=== PATIENT | male | born 1965 | race Caucasian/White ===

== ENCOUNTER 2017-03-14 10:01 | Observation (INO) | payer BC ==
[2017-03-14] MEDS ORDERED: Hydrocortisone Sodium Succinate 100 MG/2 ML SDV IVPUSH ONE (10:24)
[2017-03-14] MEDS ORDERED: Lactated Ringers 1,000 ML IV ONE (10:45)
[2017-03-14] MEDS ORDERED: Propofol 200 MG/20 ML SDV ONE (10:46)
[2017-03-14] MEDS ORDERED: Midazolam 1 MG/ML 2 ML SDV ONE (10:46)
--- NOTE | 2017-03-14 10:46 | EDM.PDOC ---
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 Review of systems: As per history of present illness and below otherwise all systems reviewed and negative. Past medical history: As per history of present illness and as reviewed below otherwise noncontributory. Surgical history: As per history of present illness and as reviewed below otherwise noncontributory. Social history: No reported history of drug or alcohol abuse. Family history: As per history of present illness and as reviewed below otherwise noncontributory. Physical exam: HEENT: Atraumatic, normocephalic, pupils reactive, negative for conjunctival pallor or scleral icterus, mucous membranes moist, throat clear, neck supple, nontender, trachea midline. Lungs: Clear to auscultation, breath sounds equal bilaterally, chest nontender. Heart: S1S2, regular, tachycardic negative for clicks, rubs, or JVD. Abdomen: Soft, nondistended, nontender. Negative for masses or hepatosplenomegaly. Negative for costovertebral tenderness. Pelvis: Stable nontender. Genitourinary: Deferred. Rectal: Deferred. Extremities: Atraumatic, negative for cords or calf pain. Neurovascular unremarkable. Neuro: Awake, alert, oriented. Diagnostics: CBC CMP PT/INR troponin magnesium chest x-ray EKG Therapeutics: IV O2 monitor hydrocortisone 100 mg IV procedure: Patient was sedated with propofol and Versed and was electrically cardioverted with 50 J synchronized successfully patient has sinus rhythm status post hemodynamically stable tolerated procedure well Impression: #1 tachydysrhythmia (atrial flutter with 2-1 block) Definitive disposition and diagnosis as appropriate pending reevaluation and review of above. - Related Data Allergies Allergy/AdvReac Type Severity Reaction Status Date / Time Sulfa (Sulfonamide Allergy Hives Verified 03/14/17 10:15 Antibiotics) Home Meds: Home Meds Aspirin 81 mg PO BRK 03/14/17 [History] Fludrocortisone [Florinef] 1 tab PO DAILY 03/14/17 [History] Hydrocortisone [Hydrocortisone] 20 mg PO DAILY 03/14/17 [History] ED ROS GENERAL - Review of Systems Review Of Systems: ROS reveals no pertinent complaints other than HPI. ED EXAM, GENERAL - Physical Exam Exam: See Below Course - Vital Signs Last Recorded V/S: Last Vital Signs Temp 36.1 C 03/14/17 10:09 Pulse 145 H 03/14/17 10:09 Resp 12 03/14/17 10:09 BP 132/97 H 03/14/17 10:09 Pulse Ox 98 03/14/17 10:44 - Orders/Labs/Meds Orders: Active Orders 24 hr Category Date Time Status Cardiac Monitoring [RC] . DIRECTED Care 03/14/17 10:16 Active EKG Documentation Completion [RC] STAT Care 03/14/17 10:16 Active Oxygen Therapy [RC] ASDIRECTED Care 03/14/17 10:16 Active Pulse Oximetry [RC] ASDIRECTED Care 03/14/17 10:16 Active Chest 1V Frontal [CR] Stat Exams 03/14/17 10:16 Taken Saline Lock Insert [OM.PC] Stat Oth 03/14/17 10:16 Ordered Labs: Laboratory Tests 03/14/17 03/14/17 03/14/17 Range/Units 10:14 10:14 10:14 WBC 8.57 (4.0-11.0) K/uL RBC 4.00 L (4.50-5.90) M/uL Hgb 13.5 (13.0-17.0) g/dL Hct 40.0 (38.0-50.0) % MCV 100.0 H (80.0-98.0) fL MCH 33.8 H (27.0-32.0) pg MCHC 33.8 (31.0-37.0) g/dL RDW Std Deviation 47.9 (28.0-62.0) fl RDW Coeff of Mario 13 (11.0-15.0) % Plt Count 225 (150-400) K/uL MPV 8.90 (7.40-12.00) fL Neut % (Auto) 70.2 (48.0-80.0) % Lymph % (Auto) 21.2 (16.0-40.0) % [place] % (Auto) 7.6 (0.0-15.0) % Eos % (Auto) 0.9 (0.0-7.0) % Baso % (Auto) 0.1 (0.0-1.5) % Neut # (Auto) 6.0 H (1.4-5.7) K/uL Lymph # (Auto) 1.8 (0.6-2.4) K/uL [place] # (Auto) 0.7 (0.0-0.8) K/uL Eos # (Auto) 0.1 (0.0-0.7) K/uL Baso # (Auto) 0.0 (0.0-0.1) K/uL Nucleated RBC % 0.0 /100WBC Nucleated RBCs # 0 K/uL INR 0.92 (0.86-1.11) Sodium 142 (136-146) mmol/L Potassium 4.2 (3.5-5.1) mmol/L Chloride 112 H (98-110) mmol/L Carbon Dioxide 20 L (21-31) mmol/L BUN 17 (6.0-23.0) mg/dL Creatinine 0.9 (0.6-1.5) mg/dL Est Cr Clr Drug Dosing 100.26 mL/min Estimated GFR (MDRD) > 60.0 ml/min Glucose 99 (60-110) mg/dL Calcium 8.9 (8.8-10.8) mg/dL Total Bilirubin 0.4 (0.1-1.5) mg/dL AST 75 H (5-40) IU/L ALT 55 H (8-54) IU/L Alkaline Phosphatase 73 (40-150) Troponin I < 0.10 (0.0-0.29) NG/ML Total Protein 6.5 (6.0-8.0) g/dL Albumin 3.7 (3.5-5.0) g/dL Globulin 2.8 (2.0-3.5) g/dL Albumin/Globulin Ratio 1.3 (1.3-2.8) Meds: Medications Discontinued Medications Generic Name Dose Route Start Last Admin Trade Name Freq PRN Reason Stop Dose Admin Hydrocortisone Sodium Succinate 100 mg 03/14/17 10:24 03/14/17 10:35 Solu-Cortef IVPUSH 03/14/17 10:25 100 mg ONETIME ONE Administration Midazolam HCl Confirm 03/14/17 10:46 Versed 1 Mg/Ml Administered 03/14/17 10:47 Dose 2 mg .ROUTE .STK-MED ONE Propofol Confirm 03/14/17 10:46 Diprivan 20 Ml Administered 03/14/17 10:47 Dose 200 mg .ROUTE .STK-MED ONE Departure - Departure Time of Disposition: 11:11 Disposition: Refer to Observation Condition: Good Clinical Impression: Atrial flutter, History of Ipgov-Ftplpcxej-Vlksq (WPW) syndrome Referrals: PCP,None [Primary Care Provider] - Forms: ED Department Discharge - My Orders Last 24 Hours: My Active Orders 03/14/17 10:16 Cardiac Monitoring [RC] . DIRECTED EKG Documentation Completion [RC] STAT Oxygen Therapy [RC] ASDIRECTED Pulse Oximetry [RC] ASDIRECTED Chest 1V Frontal [CR] Stat Saline Lock Insert [OM.PC] Stat - Assessment/Plan Last 24 Hours: My Active Orders 03/14/17 10:16 Cardiac Monitoring [RC] . DIRECTED EKG Documentation Completion [RC] STAT Oxygen Therapy [RC] ASDIRECTED Pulse Oximetry [RC] ASDIRECTED Chest 1V Frontal [CR] Stat Saline Lock Insert [OM.PC] Stat
[2017-03-14 10:47] LABS: CHLORIDE,CL 112 mmol/L (98-110); SODIUM,NA 142 mmol/L (136-146)
[2017-03-14] MEDS: Propofol 200 MG/20 ML SDV IVPUSH ONE ×2 (10:55→13:59)
[2017-03-14] MEDS: Midazolam 1 MG/ML 2 ML SDV IVPUSH ONE ×2 (10:55→14:00)
--- NOTE | 2017-03-14 11:09 | PCM.PREANE ---
Preanesthetic Assessment - Anesthesia/Transfusion/Family Hx Anesthesia History: No Prior Anesthesia - Review of Systems General: No Symptoms Pulmonary: No Symptoms Cardiovascular: No Symptoms Gastrointestinal: No Symptoms Neurological: No Symptoms Other: Reports: None - Physical Assessment NPO Status Date: 03/14/17 NPO Status Time: 09:00 O2 Sat by Pulse Oximetry: 96 Respiratory Rate: 12 Vital Signs: Last Vital Signs Temp 97.0 F 03/14/17 10:09 Pulse 145 H 03/14/17 10:09 Resp 12 03/14/17 10:09 BP 132/97 H 03/14/17 10:09 Pulse Ox 98 03/14/17 10:44 Height: 5 ft 10 in Weight: 86.183 kg ASA Class: 3E Mental Status: Alert & Oriented x3 Airway Class: Mallampati = 1 Dentition: Reports: Normal Dentition Thyro-Mental Finger Breadths: 3 Mouth Opening Finger Breadths: 3 ROM/Head Extension: Full Lungs: Clear to Auscultation, Normal Respiratory Effort Cardiovascular: Regular Rate, Regular Rhythm - Lab Values: Laboratory Last Values WBC 8.57 K/uL (4.0-11.0) 03/14/17 10:14 RBC 4.00 M/uL (4.50-5.90) L 03/14/17 10:14 Hgb 13.5 g/dL (13.0-17.0) 03/14/17 10:14 Hct 40.0 % (38.0-50.0) 03/14/17 10:14 MCV 100.0 fL (80.0-98.0) H 03/14/17 10:14 MCH 33.8 pg (27.0-32.0) H 03/14/17 10:14 MCHC 33.8 g/dL (31.0-37.0) 03/14/17 10:14 RDW Std Deviation 47.9 fl (28.0-62.0) 03/14/17 10:14 RDW Coeff of Mario 13 % (11.0-15.0) 03/14/17 10:14 Plt Count 225 K/uL (150-400) 03/14/17 10:14 MPV 8.90 fL (7.40-12.00) 03/14/17 10:14 Neut % (Auto) 70.2 % (48.0-80.0) 03/14/17 10:14 Lymph % (Auto) 21.2 % (16.0-40.0) 03/14/17 10:14 [place] % (Auto) 7.6 % (0.0-15.0) 03/14/17 10:14 Eos % (Auto) 0.9 % (0.0-7.0) 03/14/17 10:14 Baso % (Auto) 0.1 % (0.0-1.5) 03/14/17 10:14 Neut # (Auto) 6.0 K/uL (1.4-5.7) H 03/14/17 10:14 Lymph # (Auto) 1.8 K/uL (0.6-2.4) 03/14/17 10:14 [place] # (Auto) 0.7 K/uL (0.0-0.8) 03/14/17 10:14 Eos # (Auto) 0.1 K/uL (0.0-0.7) 03/14/17 10:14 Baso # (Auto) 0.0 K/uL (0.0-0.1) 03/14/17 10:14 Nucleated RBC % 0.0 /100WBC 03/14/17 10:14 Nucleated RBCs # 0 K/uL 03/14/17 10:14 INR 0.92 (0.86-1.11) 03/14/17 10:14 Sodium 142 mmol/L (136-146) 03/14/17 10:14 Potassium 4.2 mmol/L (3.5-5.1) 03/14/17 10:14 Chloride 112 mmol/L (98-110) H 03/14/17 10:14 Carbon Dioxide 20 mmol/L (21-31) L 03/14/17 10:14 BUN 17 mg/dL (6.0-23.0) 03/14/17 10:14 Creatinine 0.9 mg/dL (0.6-1.5) 03/14/17 10:14 Est Cr Clr Drug Dosing 100.26 mL/min 03/14/17 10:14 Estimated GFR (MDRD) > 60.0 ml/min 03/14/17 10:14 Glucose 99 mg/dL (60-110) 03/14/17 10:14 Calcium 8.9 mg/dL (8.8-10.8) 03/14/17 10:14 Total Bilirubin 0.4 mg/dL (0.1-1.5) 03/14/17 10:14 AST 75 IU/L (5-40) H 03/14/17 10:14 ALT 55 IU/L (8-54) H 03/14/17 10:14 Alkaline Phosphatase 73 (40-150) 03/14/17 10:14 Troponin I < 0.10 NG/ML (0.0-0.29) 03/14/17 10:14 Total Protein 6.5 g/dL (6.0-8.0) 03/14/17 10:14 Albumin 3.7 g/dL (3.5-5.0) 03/14/17 10:14 Globulin 2.8 g/dL (2.0-3.5) 03/14/17 10:14 Albumin/Globulin Ratio 1.3 (1.3-2.8) 03/14/17 10:14 - Allergies Allergies/Adverse Reactions: Allergies Allergy/AdvReac Type Severity Reaction Status Date / Time Sulfa (Sulfonamide Allergy Hives Verified 03/14/17 10:15 Antibiotics) - Acknowledgements Anesthesia Type Planned: MAC Pt an Appropriate Candidate for the Planned Anesthesia: Yes Alternatives and Risks of Anesthesia Discussed w Pt/Guardian: Yes Pt/Guardian Understands and Agrees with Anesthesia Plan: Yes PreAnesthesia Questionnaire HEENT History: Reports: None Cardiovascular History: Reports: Other (See Below) Other Cardiovascular History: Warren Parkinsons Respiratory History: Reports: None Gastrointestinal History: Reports: None Genitourinary History: Reports: None Musculoskeletal History: Reports: None Neurological History: Reports: None Psychiatric History: Reports: None 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) Hematologic History: Reports: None Immunologic History: Reports: None Oncologic (Cancer) History: Reports: None Dermatologic History: Reports: None - Infectious Disease History Infectious Disease History: Reports: None - SUBSTANCE USE Smoking Status *Q: Never Smoker Second Hand Smoke Exposure: Yes Recreational Drug Use History: No - HOME MEDS Home Medications: Home Meds Aspirin 81 mg PO BRK 03/14/17 [History] Fludrocortisone [Florinef] 1 tab PO DAILY 03/14/17 [History] Hydrocortisone [Hydrocortisone] 20 mg PO DAILY 03/14/17 [History] - CURRENT (IN HOUSE) MEDS Current Meds: Current Medications Discontinued Medications Hydrocortisone Sodium Succinate (Solu-Cortef) 100 mg IVPUSH ONETIME ONE Stop: 03/14/17 10:25 Last Admin: 03/14/17 10:35 Dose: 100 mg Midazolam HCl (Versed 1 Mg/Ml) Confirm Administered Dose 2 mg .ROUTE .STK-MED ONE Stop: 03/14/17 10:47 Propofol (Diprivan 20 Ml) Confirm Administered Dose 200 mg .ROUTE .STK-MED ONE Stop: 03/14/17 10:47
--- NOTE | 2017-03-14 11:12 | PCM.POSTAN ---
POST ANESTHESIA ASSESSMENT - MENTAL STATUS Mental Status: Alert, Oriented - VITAL SIGNS Pulse Rate: 80 SaO2: 99 (6 LPM) Resp Rate: 14 Blood Pressure: 104/73 - RESPIRATORY Respiratory Status: Respiratory Rate WNL, Airway Patent, O2 Saturation Stable - CARDIOVASCULAR CV Status: Pulse Rate WNL, Blood Pressure Stable - GASTROINTESTINAL GI Status: No Symptoms - PAIN Pain Score: 0 - POST OP HYDRATION Hydration Status: Adequate & Stable
[2017-03-14] MEDS ORDERED: Sodium Chloride 0.9% 2.5 ML Syringe FLUSH PRN (12:28)
[2017-03-14] MEDS ORDERED: Albuterol/Ipratropium 3.0-0.5 MG/3 ML Neb Soln NEB PRN (12:28)
[2017-03-14] MEDS ORDERED: Ondansetron 4 MG/2 ML SDV IVPUSH PRN (12:28)
[2017-03-14] MEDS ORDERED: Sodium Chloride 0.9% 10 ML Syringe FLUSH PRN (12:28)
[2017-03-14] MEDS ORDERED: Acetaminophen 325 MG Tab PO PRN (12:28)
[2017-03-14] MEDS ORDERED: Sodium Chloride 0.9% 1,000 ML IV SCH (14:00)
--- NOTE | 2017-03-14 18:11 | PCM.HP ---
H&P History of Present Illness - General Date of Service: 03/14/17 Admit Problem/Dx: Admission Diagnosis/Problem Admission Diagnosis/Problem Atrial flutter Source of Information: Patient History Limitations: Reports: No Limitations - History of Present Illness Initial Comments - Free Text/Narative: Patient 51 y old man with PMhx of adrenal insufficiency and WPW syndrome presented to ER due to sudden onset of palpitations that persisted for few hours , not releaved by Valsalva maneuver. Patient has history of brief episodes of palpitations that lasts for few seconds every few months or years. He recently used a hair growth solution with Minoxidil and is drinking about 2 cups of coffee a day. No lightheadedness , no hypotension. The palpitations started around 3 am while he was sitting at the computer. Onset of Symptoms: Reports: Today, Sudden Duration of Symptoms: Reports: Hour(s): - Related Data Allergies/Adverse Reactions: Allergies Allergy/AdvReac Type Severity Reaction Status Date / Time Sulfa (Sulfonamide Allergy Hives Verified 03/14/17 10:15 Antibiotics) Home Medications: Home Meds RX: Aspirin 81 mg PO BRK 03/14/17 [History] RX: Fludrocortisone [Florinef] 1 tab PO DAILY 03/14/17 [History] RX: Hydrocortisone 20 mg PO DAILY 03/14/17 [History] Past Medical History HEENT History: Reports: None Cardiovascular History: Reports: Other (See Below) Other Cardiovascular History: Warren Parkinsons Respiratory History: Reports: None Gastrointestinal History: Reports: None Genitourinary History: Reports: None Musculoskeletal History: Reports: None Neurological History: Reports: None Psychiatric History: Reports: None 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 Hematologic History: Reports: None Immunologic History: Reports: None Oncologic (Cancer) History: Reports: None Dermatologic History: Reports: None - Infectious Disease History Infectious Disease History: Reports: None Social & Family History - Family History Family Medical History: Noncontributory - Tobacco Use Smoking Status *Q: Never Smoker Second Hand Smoke Exposure: Yes - Caffeine Use Caffeine Use: Reports: Coffee - Alcohol Use Days Per Week of Alcohol Use: 2 Number of Drinks Per Day: 3 Total Drinks Per Week: 6 - Recreational Drug Use Recreational Drug Use: No H&P Review of Systems - Review of Systems: Review Of Systems: See Below General: Reports: Malaise HEENT: Reports: No Symptoms Pulmonary: Reports: No Symptoms Cardiovascular: Reports: Palpitations Gastrointestinal: Reports: Diarrhea Genitourinary: Reports: No Symptoms Musculoskeletal: Reports: No Symptoms Skin: Reports: No Symptoms Psychiatric: Reports: No Symptoms Neurological: Reports: No Symptoms Hematologic/Lymphatic: Reports: No Symptoms Immunologic: Reports: No Symptoms Exam - Exam Exam: See Below - Vital Signs Vital Signs: Last Vital Signs Temp 98.6 F 03/14/17 16:00 Pulse 75 03/14/17 16:00 Resp 14 03/14/17 16:00 BP 111/83 03/14/17 16:00 Pulse Ox 97 03/14/17 16:00 Weight: 197 lb 8.547 oz - Exam General: Alert, Oriented, Cooperative HEENT: Conjunctiva Clear, EACs Clear, Hearing Intact, Mucosa Moist & [place], Nares Patent, Normal Nasal Septum Neck: Supple, Trachea Midline Lungs: Clear to Auscultation, Normal Respiratory Effort Cardiovascular: Regular Rate, Regular Rhythm, Normal S1, Normal S2 GI/Abdominal Exam: Normal Bowel Sounds, Soft, Non-Tender, No Distention, No Mass Back Exam: Normal Inspection - Patient Data Lab Results Last 24 hrs: Laboratory Results - last 24 hr 03/14/17 Range/Units 14:00 Troponin I < 0.10 (0.0-0.29) NG/ML Result Diagrams: 03/14/17 10:14 03/14/17 10:14 EKG INTERPRETATION EKG Date: 03/14/17 Rhythm: A-Flutter Rate (Beats/Min): 143 *Q Meaningful Use (ADM) - VTE *Q VTE Criteria *Q: - Stroke *Q Stroke Criteria *Q: - AMI *Q AMI Criteria *Q: - Problem List (1) Atrial flutter SNOMED Code(s): 0780329 ICD Code: I48.92 - UNSPECIFIED ATRIAL FLUTTER Status: Acute (2) History of Teeor-Ypqhytsfu-Wurqx (WPW) syndrome SNOMED Code(s): 198608360 ICD Code: Z86.79 - PERSONAL HISTORY OF OTHER DISEASES OF THE CIRCULATORY SYSTEM Status: Acute (3) Elevated LFTs SNOMED Code(s): 067614774 ICD Code: R79.89 - OTHER SPECIFIED ABNORMAL FINDINGS OF BLOOD CHEMISTRY Status: Acute Problem List Initiated/Reviewed/Updated: Yes Orders Last 24hrs: Active Orders 24 hr Category Date Time Status Patient Status [ADT] Routine ADT 03/14/17 12:29 Active Antiembolic Devices [RC] Q12H Care 03/14/17 12:37 Active Bedrest Bathroom Privileges [RC] ASDIRECTED Care 03/14/17 12:28 Active Cardiac Monitoring [RC] CONTINUOUS Care 03/14/17 12:35 Inactive Oxygen Therapy [RC] PRN Care 03/14/17 12:29 Active RT Aerosol Therapy [RC] ASDIRECTED Care 03/14/17 12:38 Active Vital Signs [RC] Q4H Care 03/14/17 12:29 Active Regular Diet [DIET] Diet 03/14/17 Lunch Active BASIC METABOLIC PANEL,BMP [CHEM] AM Lab 03/15/17 05:11 Ordered BASIC METABOLIC PANEL,BMP [CHEM] AM Lab 03/16/17 05:11 Ordered BASIC METABOLIC PANEL,BMP [CHEM] AM Lab 03/17/17 05:11 Ordered BASIC METABOLIC PANEL,BMP [CHEM] AM Lab 03/18/17 05:11 Ordered CBC WITH AUTO DIFF [HEME] AM Lab 03/15/17 05:11 Ordered CBC WITH AUTO DIFF [HEME] AM Lab 03/16/17 05:11 Ordered CBC WITH AUTO DIFF [HEME] AM Lab 03/17/17 05:11 Ordered CBC WITH AUTO DIFF [HEME] AM Lab 03/18/17 05:11 Ordered CULTURE STOOL + CAMPY+SHIGATOX [RM] Routine Lab 03/14/17 15:26 Uncollected WBC, STOOL [OP] Routine Lab 03/14/17 15:26 Uncollected Acetaminophen [Tylenol] Med 03/14/17 12:28 Active 650 mg PO Q4H PRN Albuterol/Ipratropium [DuoNeb 3.0-0.5 MG/3 ML] Med 03/14/17 12:28 Active 3 ml NEB Q4HRRT PRN Aspirin Med 03/15/17 08:00 Active 81 mg PO BRK Fludrocortisone [Florinef] Med 03/15/17 09:00 Active 0.1 mg PO DAILY Hydrocortisone [Cortef] Med 03/15/17 09:00 Active 20 mg PO DAILY Ondansetron [Zofran] Med 03/14/17 12:28 Active 4 mg IVPUSH Q4H PRN Sodium Chloride 0.9% [Normal Saline] 1,000 ml Med 03/14/17 14:00 Active IV ASDIRECTED Sodium Chloride 0.9% [Saline Flush] Med 03/14/17 12:28 Active 10 ml FLUSH ASDIRECTED PRN Sodium Chloride 0.9% [Saline Flush] Med 03/14/17 12:28 Active 2.5 ml FLUSH ASDIRECTED PRN Peripheral IV Insertion Adult [OM.PC] Routine Oth 03/14/17 12:28 Ordered Sequential Compression Device [OM.PC] Per Unit Routine Oth 03/14/17 12:35 Ordered Resuscitation Status Routine Resus Stat 03/14/17 12:28 Ordered Medication Orders Acetaminophen (Tylenol) 650 mg PO Q4H PRN PRN Reason: Pain (Mild 1-3)/fever Albuterol/Ipratropium (Duoneb 3.0-0.5 Mg/3 Ml) 3 ml NEB Q4HRRT PRN PRN Reason: Shortness Of Breath/wheezing Aspirin (Aspirin) 81 mg PO BRK CHEPE Fludrocortisone Acetate (Florinef) 0.1 mg PO DAILY CHEPE Hydrocortisone (Cortef) 20 mg PO DAILY CHEPE Sodium Chloride (Normal Saline) 1,000 mls @ 100 mls/hr IV ASDIRECTED CHEPE Last Admin: 03/14/17 14:30 Dose: 100 mls/hr Ondansetron HCl (Zofran) 4 mg IVPUSH Q4H PRN PRN Reason: Nausea Sodium Chloride (Saline Flush) 10 ml FLUSH ASDIRECTED PRN PRN Reason: Keep Vein Open Sodium Chloride (Saline Flush) 2.5 ml FLUSH ASDIRECTED PRN PRN Reason: Keep Vein Open A/p A flutter new onset s/p cardioversion to sinus rhythm in Er WPW syndrome Adrenal Insufficiency equivocal chest pain mild elev of LFT plan: will admit patient to observation Iv fluids, property assessment monitor , lipid profile , serial troponins. Cardiology consult will continue home medications for adrenal insufficiency : hydrocortisone 10 mg po BID , fludrocortisone 0.1 mg po daily DVT prof: patient is ambulatory
--- NOTE | 2017-03-14 23:27 | PCM48HPAN ---
Post Anesthesia Note - EVALUATION WITHIN 48HRS OF ANESTHETIC Vital Signs in Normal Range: Yes Patient Participated in Evaluation: Yes Respiratory Function Stable: Yes Airway Patent: Yes Cardiovascular Function Stable: Yes Hydration Status Stable: Yes Pain Control Satisfactory: Yes Nausea and Vomiting Control Satisfactory: Yes Mental Status Recovered: Yes
[2017-03-15] MEDS ORDERED: Aspirin 81 MG Tab.Chew PO SCH (08:00)
[2017-03-15] MEDS ORDERED: Fludrocortisone 0.1 MG Tab PO SCH (09:00)
[2017-03-15] MEDS ORDERED: Hydrocortisone 20 MG Tab PO SCH (09:00)
--- NOTE | 2017-03-15 12:04 | CR ---
EXAM DATE: 03/14/17 PATIENT'S AGE: 51 Patient: TAISHA ESCALANTE Facility: [place], [place] Site . Site : 1965 Study: XRay Chest [id number]/23/2017 10:28:50 AM Ordering Physician: Rashid Aj Final Report: INDICATION: Elevated heart rate. Technique: Portable chest. Findings: Heart and mediastinum are normal in size. Pulmonary vessels are normal. Lungs are clear. No pleural fluid. No acute bony abnormality. Impression: No acute chest disease. Dictated by Tootie Dockery MD @ Mar 14 2017 10:40AM (Electronic Signature) Report Signed by Proxy. [facility]
== END 2017-03-14 19:30 | disposition home or self-care (01) ==
LOC: MW.ED 10:01 → MW.ICU 11:10 → UNDOADMOB 11:10 → MW.ICU 11:14
PROVIDERS: ADMIT Internal Medicine; ATTEND Internal Medicine
DX: I48.92 Unspecified atrial flutter (principal); R79.89 Other specified abnormal findings of blood chemistry; Z86.79 Personal history of other diseases of the circulatory system; Z88.2 Allergy status to sulfonamides; Z79.82 Long term (current) use of aspirin; Z79.899 Other long term (current) drug therapy
CPT/HCPCS: 36415; 71010; 80053; 80061; 83735; 84484; 85025; 85610; 92960; 93005; 96365; 96375; 99285; G0378; J1720; J2250; J7040; J7120; 00410; 99283; J2704

== ENCOUNTER 2018-09-16 07:21 | Day surgery (SDC) | payer BC ==
[~2018-09-16 07:21] MED LIST: Lactated Ringers 1,000 ML IV SCH; Lidocaine 2% 5 ML SDV ONE; Propofol 200 MG/20 ML SDV ONE; Sodium Chloride 0.9% 10 ML SDV IV PRN; Sodium Chloride 0.9% 10 ML Syringe FLUSH PRN; Sodium Chloride 0.9% 2.5 ML Syringe FLUSH PRN; fentaNYL 100 MCG/2 ML SDV ONE
--- NOTE | 2018-09-16 08:10 | PCM.PREANE ---
Preanesthetic Assessment - Anesthesia/Transfusion/Family Hx Anesthesia History: Prior Anesthesia Without Reaction (hernia as child) Family History of Anesthesia Reaction: No Transfusion History: No Prior Transfusion(s) - Review of Systems General: No Symptoms Pulmonary: No Symptoms Cardiovascular: No Symptoms Gastrointestinal: No Symptoms Neurological: No Symptoms Other: Reports: None - Physical Assessment Height: 5 ft 10 in Weight: 86.636 kg ASA Class: 2 Mental Status: Alert & Oriented x3 Airway Class: Mallampati = 2 Dentition: Reports: Normal Dentition ROM/Head Extension: Full Lungs: Clear to Auscultation, Normal Respiratory Effort Cardiovascular: Regular Rate, Regular Rhythm - Allergies Allergies/Adverse Reactions: Allergies Allergy/AdvReac Type Severity Reaction Status Date / Time Sulfa (Sulfonamide Allergy Hives Verified 09/11/18 12:50 Antibiotics) - Blood Blood Available: No - Anesthesia Plan Pre-Op Medication Ordered: None - Acknowledgements Anesthesia Type Planned: General Anesthesia Pt an Appropriate Candidate for the Planned Anesthesia: Yes Alternatives and Risks of Anesthesia Discussed w Pt/Guardian: Yes Pt/Guardian Understands and Agrees with Anesthesia Plan: Yes Additional Comments: anes prob list: addisons dz on hydrocortisone and flurinef replacement, Hx of WPW- s/p successful ablation, mild asthma- uses symbicort daily, never required oral steroids PLAN: tiva PreAnesthesia Questionnaire HEENT History: Reports: None Cardiovascular History: Reports: Arrhythmia, Other (See Below) Other Cardiovascular History: hx of Warren Parkinson white syndrome & atrial flutter Respiratory History: Reports: Asthma Gastrointestinal History: Reports: None Genitourinary History: Reports: None Musculoskeletal History: Reports: None Neurological History: Reports: None Psychiatric History: Reports: Anxiety Other Psychiatric History: situational anxiety 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 Hematologic History: Reports: None Immunologic History: Reports: None Oncologic (Cancer) History: Reports: None Dermatologic History: Reports: None - Infectious Disease History Infectious Disease History: Reports: None - Past Surgical History Head Surgeries/Procedures: Reports: None HEENT Surgical History: Reports: None Cardiovascular Surgical History: Reports: Cardiac Ablation Other Cardiovascular Surgeries/Procedures: hx cardiac ablation for WPW & cardioversion for atrial flutter Respiratory Surgical History: Reports: None GI Surgical History: Reports: Hernia, Inguinal Other GI Surgeries/Procedures: hx inguinal hernia repair as a Male Surgical History: Reports: None Endocrine Surgical History: Reports: None Neurological Surgical History: Reports: None Musculoskeletal Surgical History: Reports: None Oncologic Surgical History: Reports: None - SUBSTANCE USE Tobacco Use Within Last Twelve Months: Snuff/Dip Recreational Drug Use History: No - HOME MEDS Home Medications: Home Meds Fludrocortisone [Florinef] 1 tab PO DAILY 03/14/17 [History] Hydrocortisone 20 mg PO DAILY 03/14/17 [History] Budesonide/Formoterol Fumarate [Symbicort 80-4.5 Mcg Inhaler] 2 puff INH ASDIRECTED 09/11/18 [History] Dexamethasone Sod Phosphate [Dexamethasone Sodium Phosphate] 10 mg IM ASDIRECTED PRN 09/11/18 [History] Albuterol Sulfate [Albuterol Sulfate Hfa] 1 - 2 puff INH ASDIRECTED PRN [History] - CURRENT (IN HOUSE) MEDS Current Meds: Current Medications Lactated Ringer's (Ringers, Lactated) 1,000 mls @ 125 mls/hr IV ASDIRECTED CHEPE Last Admin: 09/16/18 08:04 Dose: 125 mls/hr Sodium Chloride (Saline Flush) 10 ml FLUSH ASDIRECTED PRN PRN Reason: Keep Vein Open Sodium Chloride (Saline Flush) 2.5 ml FLUSH ASDIRECTED PRN PRN Reason: Keep Vein Open Sodium Chloride (Saline Flush) 10 ml FLUSH ASDIRECTED PRN PRN Reason: Keep Vein Open Sodium Chloride (Saline Flush) 2.5 ml FLUSH ASDIRECTED PRN PRN Reason: Keep Vein Open Sodium Chloride (Normal Saline) 10 ml IV ASDIRECTED PRN PRN Reason: IV Use Discontinued Medications Fentanyl (Sublimaze) Confirm Administered Dose 100 mcg .ROUTE .STK-MED ONE Stop: 09/16/18 07:03 Lidocaine (Xylocaine-Mpf 2%) Confirm Administered Dose 5 ml .ROUTE .STK-MED ONE Stop: 09/16/18 07:02 Propofol (Diprivan 20 Ml) Confirm Administered Dose 400 mg .ROUTE .STK-MED ONE Stop: 09/16/18 07:03
[2018-09-16] MEDS ORDERED: Midazolam 1 MG/ML 2 ML SDV ONE (08:14)
--- NOTE | 2018-09-16 09:43 | PCM.OPNOTE ---
- General Post-Op/Procedure Note Date of Surgery/Procedure: 09/16/18 Operative Procedure(s): Screening colonoscopy Findings: Normal colon Pre Op Diagnosis: Screening colonoscopy Post-Op Diagnosis: normal colonoscopy Anesthesia Technique: MAC Primary Surgeon: Faiza Arroyo Condition: Good Free Text/Narrative:: Intake & Output 09/15/18 09/16/18 09/16/18 22:59 06:59 14:59 Intake Total 900 Balance 900
--- NOTE | 2018-09-16 10:27 | PCM.POSTAN ---
POST ANESTHESIA ASSESSMENT - MENTAL STATUS Mental Status: Alert, Oriented - RESPIRATORY Respiratory Status: Respiratory Rate WNL, Airway Patent, O2 Saturation Stable - CARDIOVASCULAR CV Status: Pulse Rate WNL, Blood Pressure Stable - GASTROINTESTINAL GI Status: No Symptoms - POST OP HYDRATION Hydration Status: Adequate & Stable
--- NOTE | 2018-09-16 10:28 | PCM48HPAN ---
Post Anesthesia Note - EVALUATION WITHIN 48HRS OF ANESTHETIC Vital Signs in Normal Range: Yes Patient Participated in Evaluation: Yes Respiratory Function Stable: Yes Airway Patent: Yes Cardiovascular Function Stable: Yes Hydration Status Stable: Yes Pain Control Satisfactory: Yes Nausea and Vomiting Control Satisfactory: Yes Mental Status Recovered: Yes Resp Rate: 16
--- NOTE | 2018-09-16 13:36 | OR ---
SURGEON: FAIZA ARROYO MD DATE OF PROCEDURE: 09/16/2018 PREOPERATIVE DIAGNOSIS: Screening colonoscopy. POSTOPERATIVE DIAGNOSIS: Screening colonoscopy. PROCEDURE PERFORMED: Screening colonoscopy. PRIMARY SURGEON: Endoscopist, Faiza Arroyo MD. ANESTHESIA: MAC. INSTRUMENT USED: Olympus colonoscope. EXTENT OF EXAM: To the cecum. PREPARATION: Good. LIMITATIONS: None. INDICATION FOR EXAMINATION: The patient is a 53-year-old male who presents for a first-time screening colonoscopy. I explained the procedure, expected perioperative course, and risks including bleeding, infection, or damage to surrounding structures including perforation. The patient verbalized understanding and wishes to proceed. PROCEDURE IN DETAIL: The patient was brought to the endoscopy suite and placed in the left lateral decubitus position. A time-out was completed verifying the patient's name, age, date of , allergies, and procedure to be performed. Monitored anesthesia care was induced and continuous oxygen was provided via nasal cannula throughout the procedure. After adequate sedation was achieved, a digital rectal exam was performed. This exam was within normal limits. A well-lubricated colonoscope was inserted in the rectum and advanced under direct visualization to the level of the cecum. The cecum was identified by both visual and anatomic landmarks. A photograph was taken of the cecal cap as well as with the scope retroflexed within the cecum. Scope was then fully withdrawn while examining the color, texture, anatomy, and integrity of the mucosa from the cecum to the anal canal. The findings were consistent with normal colonic mucosa. The scope was then brought into the rectum and retroflexed to allow visualization of the anal canal opening. This appeared normal and a photograph was taken. The scope was then straightened out and fully withdrawn. The cecum to anus time was 8 minutes. The patient tolerated the procedure well and was taken to PACU in stable condition. ENDOSCOPIC DIAGNOSIS: Normal colonoscopy. RECOMMENDATIONS: Follow up in clinic in 10 years. BRAD / YOLANDA /[id number]
== END 2018-09-16 09:43 | disposition home or self-care (01) ==
LOC: MW.SDS 07:21
PROVIDERS: ATTEND Surgery
DX: Z12.11 Encounter for screening for malignant neoplasm of colon (principal); J45.909 Unspecified asthma, uncomplicated; I48.92 Unspecified atrial flutter; R03.0 Elevated blood-pressure reading, without diagnosis of hypertension; F41.8 Other specified anxiety disorders; Z88.2 Allergy status to sulfonamides; Z79.899 Other long term (current) drug therapy
CPT/HCPCS: 45378; J2001; J2250; J2704; J3010; J7120